=== PATIENT | male | born 1980 | race Caucasian/White ===

== ENCOUNTER 2018-08-14 12:30 | Emergency (ER) | payer OTHER ==
[~2018-08-14] VITALS: Ht 188 cm; Wt 93.2 kg
[2018-08-14] MEDS ORDERED: LORA10TA7 PO (12:40)
[2018-08-14] MEDS ORDERED: ARIP10TA8 PO (12:40)
[2018-08-14] MEDS ORDERED: BENZ1TAB10 PO (12:40)
[2018-08-14] MEDS ORDERED: LORA0.5T2 PO (12:40)
[2018-08-14] MEDS ORDERED: BUPR150T3 PO (12:40)
[2018-08-14] MEDS ORDERED: RISP4 PO (12:40)
[2018-08-14] MEDS ORDERED: NICO-704 TD (12:40)
[2018-08-14] MEDS ORDERED: IBUP-2071 PO (12:40)
[2018-08-14 12:45] VITALS: BP 130/95
== END 2018-08-14 14:55 | disposition home or self-care (01) ==
LOC: EMS 12:31
DX: F20.9 Schizophrenia, unspecified (principal); F31.9 Bipolar disorder, unspecified
CPT/HCPCS: 99281; 99284

== ENCOUNTER 2022-02-21 15:15 | Inpatient (IN) | payer MEDICAID ==
[~2022-02-21] VITALS: Ht 188 cm; Wt 88.9 kg
[~2022-02-21 15:15] MED LIST: ARIP10TA38 PO; BENZ1TAB96 PO; BUPR150T3 PO; IBUP-2071 PO; LORA-999 PO; LORA10TA7 PO; NICO-803 TD; RISP4TAB73 PO
[2022-02-21] MEDS ORDERED: DIVA-80 PO ×2 (16:46→17:23)
[2022-02-21] MEDS ORDERED: OLAN10TA74 PO (16:46)
[2022-02-21] MEDS ORDERED: BENZ1TAB96 PO (16:47)
[2022-02-21] MEDS ORDERED: RISP2TAB45 PO (17:23)
[2022-02-21] MEDS ORDERED: BUSP10TA23 PO (17:23)
[2022-02-21] MEDS: HALOPERIDOL 5 MG TABLET PO PRN (20:14)
[2022-02-21] MEDS: LORazepam 2 MG TABLET PO PRN (20:15)
[2022-02-21] MEDS: ZOLPIDEM TARTRATE 10 MG TABLET PO PRN (20:15)
[2022-02-21 20:23] VITALS: BP 140/77
[2022-02-22] MEDS: LORazepam 2 MG TABLET PO PRN ×4 (03:12→20:46)
[2022-02-22] MEDS: HALOPERIDOL 5 MG TABLET PO PRN ×4 (03:12→20:46)
[2022-02-22] MEDS ORDERED: MAG HYDROX/AL HYDROX/SIMETH ES 30 ML SUSPENSION UDCUP PO PRN (06:30)
[2022-02-22] MEDS ORDERED: BENZOCAINE/MENTHOL LOZENGE PO PRN (06:30)
[2022-02-22] MEDS ORDERED: ALBUTEROL SULFATE HFA 90 MCG/PUFF 8 GM INHALER IH PRN (06:30)
[2022-02-22] MEDS ORDERED: IBUPROFEN 600 MG TABLET PO PRN (06:30)
[2022-02-22] MEDS ORDERED: LOPERAMIDE HCL 2 MG CAPSULE PO PRN (06:30)
[2022-02-22] MEDS ORDERED: MAGNESIUM HYDROXIDE SUSPENSION 30 ML UDCUP PO PRN (06:30)
[2022-02-22] MEDS ORDERED: PETROLATUM,WHITE 28 GM JELLY TP PRN (06:30)
[2022-02-22] MEDS ORDERED: OMEPRAZOLE 20 MG CAPSULE PO PRN (06:30)
[2022-02-22] MEDS ORDERED: ACETAMINOPHEN 325 MG TABLET PO PRN (06:30)
[2022-02-22] MEDS ORDERED: DOCUSATE SODIUM 100 MG CAPSULE PO PRN (06:30)
[2022-02-22] MEDS ORDERED: CloNIDine HCL 0.1 MG TABLET PO PRN (06:30)
[2022-02-22] MEDS ORDERED: ONDANSETRON HCL 4 MG TABLET PO PRN (06:30)
[2022-02-22] MEDS ORDERED: BACITRACIN 28 GM OINTMENT TP PRN (06:30)
[2022-02-22 07:11] VITALS: BP 161/99
[2022-02-22 07:24] LABS: EOSINOPHILS % (AUTO) 3.2 % (1.0-6.0); HEMATOCRIT 37.7 % (41-53); HEMOGLOBIN 12.9 g/dL (13.5-17.5); LYMPHOCYTES # (AUTO) 1.8 K/uL (1.0-4.8); LYMPHOCYTES % (AUTO) 23.9 % (22.0-44.0); MEAN CORPUSCULAR HEMOGLOBIN 31.3 pg (26.0-34.0); MEAN CORPUSCULAR HGB CONC 34.3 G/dL (31.0-37.0); MEAN CORPUSCULAR VOLUME 91 fL (80-100); MONOCYTES # (AUTO) 0.8 K/uL (0.1-1.0); MONOCYTES % (AUTO) 10.7 % (2.0-9.0); NEUTROPHILS # (AUTO) 4.5 K/uL (1.8-7.7); NEUTROPHILS % (AUTO) 61.2 % (40.0-70.0); PLATELET COUNT (AUTO) 225 K/uL (150-450); RED BLOOD CELL COUNT(AUTO) 4.13 MIL/uL (4.50-5.90); RED CELL DISTRIBUTION WIDTH 13.8 % (11.5-14.5)
[2022-02-22 07:47] LABS: HEMOGLOBIN A1C 5.2 % (3.8-5.6)
[2022-02-22 08:01] LABS: ALANINE AMINOTRANSFERASE 19 U/L (12-78); ALBUMIN 3.2 g/dL (3.4-5.0); ALKALINE PHOSPHATASE 61 U/L (46-116); ANION GAP 6 mmol/L (8-16); ASPARTATE AMINOTRANSFERASE 16 U/L (15-37); BILIRUBIN,TOTAL 0.4 mg/dL (0.1-1.0); CALCIUM, TOTAL 8.7 mg/dL (8.8-10.5); CARBON DIOXIDE 28 mmol/L (22-29); CHLORIDE 105 mmol/L (98-107); CHOL/HDL RATIO 4.3 (4.2-7.3); CHOLESTEROL 156 mg/dL (131-200); CREATININE 0.87 mg/dL (0.60-1.30); FREE T4 (FREE THYROXINE) 1.06 ng/dL (0.76-1.46); GLOMERULAR FILTR. RATE CALC > 60 mL/min (>60); GLUCOSE,RANDOM 77 mg/dL (70-110); HDL CHOLESTEROL 36 mg/dL (40-60); LDL CHOL (CALC.) 100 mg/dL (0-130); POTASSIUM 4.1 mmol/L (3.5-5.1); SODIUM SERUM 139 mmol/L (136-145); THYROID STIMULATING HORMONE 1.04 uIU/mL (0.36-3.74); TOTAL PROTEIN, SERUM 6.2 g/dL (6.4-8.2); TRIGLYCERIDES 102 mg/dL (15-150); UREA NITROGEN, BLOOD 13 mg/dL (7-18)
[2022-02-22] MEDS: LORATADINE 10 MG TABLET PO SCH ×2 (08:23→08:30)
[2022-02-22] MEDS: NICOTINE 21 MG/24 HOUR PATCH TD SCH ×2 (08:23→08:30)
[2022-02-22 08:52] VITALS: BP 160/89
[2022-02-22 16:19] VITALS: BP 128/82
[2022-02-22] MEDS: RisperiDONE 3 MG TABLET PO SCH (20:46)
[2022-02-22] MEDS: ZOLPIDEM TARTRATE 10 MG TABLET PO PRN (20:47)
[2022-02-23 05:56] VITALS: BP 120/85
[2022-02-23 08:18] VITALS: BP 123/77
[2022-02-23] MEDS: DIVALPROEX SODIUM 500 MG DR TABLET PO SCH ×2 (08:20→16:15)
[2022-02-23] MEDS: LORazepam 2 MG TABLET PO PRN ×3 (08:21→20:40)
[2022-02-23] MEDS: RisperiDONE 3 MG TABLET PO SCH ×2 (08:21→20:40)
[2022-02-23] MEDS: LORATADINE 10 MG TABLET PO SCH (08:21)
[2022-02-23] MEDS: NICOTINE 21 MG/24 HOUR PATCH TD SCH (08:24)
[2022-02-23 16:13] VITALS: BP 121/80
[2022-02-23] MEDS: HALOPERIDOL 5 MG TABLET PO PRN (16:15)
[2022-02-23] MEDS: ZOLPIDEM TARTRATE 10 MG TABLET PO PRN (20:40)
[2022-02-24 04:44] VITALS: BP 116/83
[2022-02-24] MEDS: NICOTINE 21 MG/24 HOUR PATCH TD SCH ×2 (08:40→08:50)
[2022-02-24] MEDS: LORATADINE 10 MG TABLET PO SCH (08:41)
[2022-02-24] MEDS: DIVALPROEX SODIUM 500 MG DR TABLET PO SCH ×2 (08:41→16:25)
[2022-02-24] MEDS: RisperiDONE 3 MG TABLET PO SCH ×2 (08:41→20:56)
[2022-02-24] MEDS: LORazepam 2 MG TABLET PO PRN (08:41)
[2022-02-24 09:21] VITALS: BP 113/78
[2022-02-24 16:52] VITALS: BP 154/97
[2022-02-25 06:30] VITALS: BP 123/78
[2022-02-25] MEDS: RisperiDONE 3 MG TABLET PO SCH ×2 (08:35→21:01)
[2022-02-25] MEDS: NICOTINE 21 MG/24 HOUR PATCH TD SCH (08:35)
[2022-02-25] MEDS: DIVALPROEX SODIUM 500 MG DR TABLET PO SCH ×2 (08:35→16:40)
[2022-02-25] MEDS: LORATADINE 10 MG TABLET PO SCH (08:35)
[2022-02-25] MEDS: LORazepam 2 MG TABLET PO PRN ×2 (08:35→18:12)
[2022-02-25 08:36] VITALS: BP 117/80
[2022-02-25 16:05] VITALS: BP 120/88
[2022-02-25] MEDS: HALOPERIDOL 5 MG TABLET PO PRN (18:12)
[2022-02-26 01:24] VITALS: BP 123/78
[2022-02-26 08:16] VITALS: BP 104/76
[2022-02-26] MEDS: LORATADINE 10 MG TABLET PO SCH (08:42)
[2022-02-26] MEDS: LORazepam 2 MG TABLET PO PRN ×3 (08:42→20:37)
[2022-02-26] MEDS: RisperiDONE 3 MG TABLET PO SCH ×2 (08:42→20:37)
[2022-02-26] MEDS: DIVALPROEX SODIUM 500 MG DR TABLET PO SCH ×2 (08:42→16:36)
[2022-02-26] MEDS: NICOTINE 21 MG/24 HOUR PATCH TD SCH (09:00)
[2022-02-26 16:16] VITALS: BP 114/72
[2022-02-26] MEDS: HALOPERIDOL 5 MG TABLET PO PRN (16:36)
[2022-02-26] MEDS: ZOLPIDEM TARTRATE 10 MG TABLET PO PRN (20:38)
[2022-02-27 04:57] VITALS: BP 137/93
[2022-02-27] MEDS: HALOPERIDOL 5 MG TABLET PO PRN ×2 (08:29→16:12)
[2022-02-27] MEDS: DIVALPROEX SODIUM 500 MG DR TABLET PO SCH ×2 (08:29→16:12)
[2022-02-27] MEDS: LORazepam 2 MG TABLET PO PRN ×2 (08:29→16:12)
[2022-02-27] MEDS: RisperiDONE 3 MG TABLET PO SCH ×2 (08:29→20:48)
[2022-02-27] MEDS: LORATADINE 10 MG TABLET PO SCH (08:30)
[2022-02-27 08:35] VITALS: BP 142/91
[2022-02-27] MEDS: NICOTINE 21 MG/24 HOUR PATCH TD SCH (09:00)
[2022-02-27 16:14] VITALS: BP 124/79
[2022-02-27] MEDS: ZOLPIDEM TARTRATE 10 MG TABLET PO PRN (20:48)
[2022-02-28 05:43] VITALS: BP 138/90
[2022-02-28 07:37] LABS: APPEARANCE,URINE CLEAR (CLEAR); BILIRUBIN,URINE NEGATIVE (NEGATIVE); GLUCOSE, URINE (UA) NEGATIVE (NEGATIVE); KETONES,URINE NEGATIVE (NEGATIVE); LEUKOCYTE ESTERASE ,URINE NEGATIVE (NEGATIVE); NITRATE,URINE NEGATIVE (NEGATIVE); OCCULT BLOOD,URINE NEGATIVE (NEGATIVE); PH,URINE 6.5 (5.0-8.0); PROTEIN,URINE NEGATIVE (NEGATIVE); SPECIFIC GRAVITIY, URINE 1.024 (1.003-1.030); UROBILINOGEN,URINE <=1.0 mg/dL (<=1.0)
[2022-02-28 07:45] LABS: AMPHET/METH SCREEN,URINE NEGATIVE (NEGATIVE); BARBITURATE SCREEN, URINE NEGATIVE (NEGATIVE); BENZODIAZEPINES SCREEN,URINE NEGATIVE (NEGATIVE); CANNABINOID SCREEN,URINE NEGATIVE (NEGATIVE); COCAINE SCREEN,URINE NEGATIVE (NEGATIVE); METHADONE SCREEN, URINE NEGATIVE (NEGATIVE); OPIATE SCREEN,URINE NEGATIVE (NEGATIVE)
[2022-02-28 07:47] LABS: PHENCYCLIDINE SCREEN,URINE NEGATIVE (NEGATIVE)
[2022-02-28] MEDS: DIVALPROEX SODIUM 500 MG DR TABLET PO SCH ×2 (08:13→16:25)
[2022-02-28] MEDS: LORATADINE 10 MG TABLET PO SCH (08:13)
[2022-02-28] MEDS: RisperiDONE 3 MG TABLET PO SCH ×2 (08:13→20:45)
[2022-02-28] MEDS: LORazepam 2 MG TABLET PO PRN ×2 (08:15→16:25)
[2022-02-28] MEDS: NICOTINE 21 MG/24 HOUR PATCH TD SCH (08:26)
[2022-02-28 08:40] VITALS: BP 136/88
[2022-02-28 16:23] VITALS: BP 117/75
[2022-02-28] MEDS: HALOPERIDOL 5 MG TABLET PO PRN (16:25)
[2022-02-28] MEDS: ZOLPIDEM TARTRATE 10 MG TABLET PO PRN (20:45)
[2022-03-01 05:11] VITALS: BP 112/80
[2022-03-01] MEDS: HALOPERIDOL 5 MG TABLET PO PRN (08:05)
[2022-03-01] MEDS: RisperiDONE 3 MG TABLET PO SCH (08:05)
[2022-03-01] MEDS: LORazepam 2 MG TABLET PO PRN (08:05)
[2022-03-01] MEDS: DIVALPROEX SODIUM 500 MG DR TABLET PO SCH ×2 (08:05→16:16)
[2022-03-01] MEDS: LORATADINE 10 MG TABLET PO SCH (08:09)
[2022-03-01] MEDS: NICOTINE 21 MG/24 HOUR PATCH TD SCH (08:13)
[2022-03-01 09:13] VITALS: BP 124/78
[2022-03-02] MEDS ORDERED: RISP3TAB63 PO (10:52)
[2022-03-02] MEDS ORDERED: DIVA-112 PO (10:52)
== END 2022-03-01 16:40 | disposition home or self-care (01) | DRG 750 ==
LOC: B3A 19:53
PROVIDERS: ADMIT Psychiatry & Neurology Psychiatry; ATTEND Psychiatry & Neurology Psychiatry
DX: F20.0 Paranoid schizophrenia (principal); F29 Unspecified psychosis not due to a substance or known physiological condition; F12.90 Cannabis use, unspecified, uncomplicated; F41.9 Anxiety disorder, unspecified; G47.00 Insomnia, unspecified; Z72.0 Tobacco use; Z71.6 Tobacco abuse counseling; Z72.89 Other problems related to lifestyle
CPT/HCPCS: 80053; 80061; 80164; 80307; 81003; 83036; 84439; 84443; 85025; 87081